=== PATIENT | female | born 1940 | race Caucasian/White ===

== ENCOUNTER 2024-03-13 06:50 | Day surgery (SDC) | payer MEDICARE, OTHER ==
[~2024-03-13 06:50] MED LIST: Morphine 8 MG, EPINEPHrine 0.3 MG, Cefuroxime 750 MG, Ketorolac 30 MG, Sodium Chloride ... PRN; Sodium Chloride 0.9% 10 ML Syringe FLUSH PRN; Sodium Chloride 0.9% 10 ML Syringe FLUSH SCH
[2024-03-13] MEDS ORDERED: HYDROmorphone 0.5 MG/0.5 ML Syringe IVPUSH PRN (06:59)
[2024-03-13] MEDS ORDERED: fentaNYL 100 MCG/2 ML SDV IVPUSH PRN (06:59)
[2024-03-13] MEDS ORDERED: Ondansetron 4 MG/2 ML SDV IVPUSH PRN (06:59)
[2024-03-13] MEDS: Lactated Ringers 1,000 ML IV SCH (07:00)
[2024-03-13] MEDS ORDERED: Propofol 200 MG/20 ML SDV ONE (07:09)
[2024-03-13] MEDS ORDERED: Midazolam 1 MG/ML 2 ML SDV ONE (07:09)
[2024-03-13] MEDS ORDERED: Sodium Chloride 0.9% 100 ML ONE (07:10)
[2024-03-13] MEDS ORDERED: Phenylephrine 1% 10 MG/ML SDV ONE (08:15)
[2024-03-13] MEDS ORDERED: ceFAZolin 2 GM Vial ONE (08:30)
[2024-03-13] MEDS ORDERED: Ondansetron 4 MG/2 ML SDV ONE (08:40)
[2024-03-13] MEDS ORDERED: Dexamethasone 4 MG/ML 5 ML MDV ONE (08:40)
[2024-03-13] MEDS: Tranexamic Acid 1,000 MG/10 ML Vial ONE (09:24)
[2024-03-13] MEDS: Vancomycin 1 GM SDV ONE (09:24)
[2024-03-13] MEDS: Morphine 8 MG, EPINEPHrine 0.3 MG, Cefuroxime 750 MG, Ketorolac 30 MG, Sodium Chloride ... PRN (09:24)
[2024-03-13] MEDS: Bupivacaine 0.25% 10 ML SDV ONE (09:40)
[2024-03-13] MEDS: Triamcinolone Acetonide 40 MG/ML 1 ML SDV ONE (09:40)
[2024-03-13] MEDS ORDERED: Ropivacaine 0.5% 5 MG/ML 30 ML SDV ONE (09:53)
[2024-03-13] MEDS: oxyCODONE 5 MG Tab PO PRN (12:21)
== END 2024-03-13 12:33 | disposition home or self-care (01) ==
LOC: JD.SDS 06:50
PROVIDERS: ATTEND Orthopaedic Surgery
DX: M17.11 Unilateral primary osteoarthritis, right knee (principal); E11.22 Type 2 diabetes mellitus with diabetic chronic kidney disease; I12.9 Hypertensive chronic kidney disease with stage 1 through stage 4 chronic kidney disease, or unspecified chronic kidney disease; N18.30 Chronic kidney disease, stage 3 unspecified; K21.9 Gastro-esophageal reflux disease without esophagitis; E78.5 Hyperlipidemia, unspecified; Z87.891 Personal history of nicotine dependence; Z79.82 Long term (current) use of aspirin; Z79.4 Long term (current) use of insulin; Z79.899 Other long term (current) drug therapy; Z88.8 Allergy status to other drugs, medicaments and biological substances
CPT/HCPCS: 0055T; 27447; 73560; 82947; 97110; 97161; A9270; C1713; C1776; J0171; J0665; J0690; J0697; J1100; J1885; J2250; J2270; J2371; J2405; J2704; J2795; J3301; J3370; J3490; J7120; 01402; 99100